=== PATIENT | female | born 1985 | race Caucasian/White ===

== ENCOUNTER 2016-10-10 11:28 | Inpatient (IN) | payer OTHER ==
[2016-10-10] MEDS ORDERED: SODIUM CHLORIDE 1,000 ML IV STA (12:21)
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
[2016-10-10] MEDS ORDERED: ACETAMINOPHEN 325 MG TABLET (FP) PO ONE (12:40)
[2016-10-10] MEDS ORDERED: CLINDAMYCIN 600MG PREMIX IVPB 50 ML IVPB ONE ×2 (12:41→12:42)
[2016-10-10] MEDS ORDERED: ACETAMINOPHEN 325 MG TABLET (FP) ONE (12:41)
[2016-10-10 13:22] LABS: BASOPHIL 0.7 % (0-2.0); EOSINOPHIL 2.3 % (0-4.5); MCHC 32.3 g/dl (32.0-36.0); MEAN CELL VOLUME 83.8 fl (80-96); MEAN PLT VOLUME 8.1 fl (7.5-11.1); NEUTROPHILS 75.3 % (42.8-82.8); PLATELET COUNT 259 K/MM3 (134-434); RDW 13.4 % (11.6-15.6)
[2016-10-10 13:43] LABS: INR 1.11 (0.82-1.09); PROTHROMBIN TIME (PATIENT) 12.2 SEC (9.98-11.88)
[2016-10-10 13:46] LABS: ACTIVATED PTT 36.1 SECONDS (26.9-34.4)
[2016-10-10 13:49] LABS: ALBUMIN 3.9 g/dl (3.4-5.0); COCKROFT - GAULT 121.7285; CREATININE 0.9 mg/dL (0.55-1.02); GLUCOSE,RANDOM 85 mg/dL (74-106); SGPT/ALT 49 U/L (12-78)
[2016-10-10 14:02] LABS: ALK PHOS 108 U/L (45-117); ANION GAP 7 (8-16); BILIRUBIN,TOTAL 0.5 mg/dL (0.2-1.0); CALCIUM 9.4 mg/dL (8.5-10.1); CO2 27 mmol/L (21-32); TOT PROT 7.8 g/dl (6.4-8.2)
[2016-10-10 14:04] LABS: SGOT/AST 46 U/L (15-37)
--- NOTE | 2016-10-10 14:25 | CONSULT ---
- Consultation REQUESTING PROVIDER: Mg Lira (General Surgery) CONSULT REQUEST: We have been asked to surgically evaluate this patient for left breast abscess. HPI: Called to evaluate 31 yo female with acute onset left breast abscess. No PMHx. Presents to [facility] ED with c/o left breast abscess and pain. Informs that she got her nipples pierced 7 months ago. Patient's right breast is unremarkable and still wearing the piercing. She took out the left piercing a few days ago. She first noticed a "bump" September 21. She was /seen/evaluated/ treated by her PCP with Bactrim on 10/07/16. Currently, she is on Cleocin IVPB. she denies any fever, chills, drainage from her nipple. Denies cough, CP or SOB. PMHx: Denies. PSHx: Denies. HOME MEDS: Bactrim 1 tab PO daily Allergies: NKDA ROS Unremarkable except for whats contained in HPI PE: GENERAL: Awake, alert, and fully oriented, nad LUNGS: CTA b/l anteriorly HEART: RRR PSYCH: Cooperative. Good eye contact. Appropriate mood and affect. SKIN: Left breast --> erythema from 9 o'clock position extending medially 6cm. 3 x 3 cm blistering from 9 o'clock moving laterally. Abscess/induration extends underneath nipple-areola complex. Indurated. VERY painful to palpation. No purulent drainage. Vital Signs Temperature 98.2 F 10/10/16 11:34 Pulse Rate 76 10/10/16 11:34 Respiratory Rate 18 10/10/16 11:34 Blood Pressure 113/60 10/10/16 11:34 O2 Sat by Pulse Oximetry (%) 98 10/10/16 11:34 Lab Results WBC 9.0 K/mm3 (4.0-10.0) 10/10/16 12:25 RBC 4.92 M/mm3 (3.60-5.2) D 10/10/16 12:25 Hgb 13.3 GM/dL (10.7-15.3) D 10/10/16 12:25 Hct 41.2 % (32.4-45.2) D 10/10/16 12:25 MCV 83.8 fl (80-96) 10/10/16 12:25 MCHC 32.3 g/dl (32.0-36.0) 10/10/16 12:25 RDW 13.4 % (11.6-15.6) 10/10/16 12:25 Plt Count 259 K/MM3 (134-434) D 10/10/16 12:25 Sodium 138 mmol/L (136-145) 10/10/16 12:25 Potassium 5.2 mmol/L (3.5-5.1) H D 10/10/16 12:25 Chloride 104 mmol/L (98-107) 10/10/16 12:25 Carbon Dioxide 27 mmol/L (21-32) 10/10/16 12:25 Anion Gap 7 (8-16) L 10/10/16 12:25 BUN 10 mg/dL (7-18) D 10/10/16 12:25 Creatinine 0.9 mg/dL (0.55-1.02) D 10/10/16 12:25 Random Glucose 85 mg/dL (74-106) 10/10/16 12:25 Calcium 9.4 mg/dL (8.5-10.1) 10/10/16 12:25 Problem List - Problems (1) Breast abscess Assessment/Plan: NPO after midnight except PO meds IVF GI PPX DVT ppx --> aggressive mobilization Pre-op for Left breast I&D 10/11 Cont IV ABX Above plan discussed with Dr. Lira and agrees Code(s): N61.1 - ABSCESS OF THE BREAST AND NIPPLE Visit type - Case Type Case Type: ED Admission - Emergency Emergency Visit: Yes Care time: The patient presented to the Emergency Department on the above date and was hospitalized for further evaluation of their emergent condition. - New patient This patient is new to me today: Yes Date on this admission: 10/10/16
[2016-10-10] MEDS ORDERED: ACETAMINOPHEN 325 MG TABLET (FP) PO PRN (17:41)
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
[2016-10-10] MEDS: PIPERACILLIN/TAZOB 3.375 GM 50 ML IVPB SCH (21:14)
[2016-10-10 23:23] VITALS: BMI 31.9
[2016-10-11] MEDS: PIPERACILLIN/TAZOB 3.375 GM 50 ML IVPB SCH ×3 (02:24→18:12)
[2016-10-11] MEDS: CLINDAMYCIN 300 MG PREMIX IVPB 50 ML IVPB SCH ×3 (02:24→18:11)
[2016-10-11 08:12] LABS: BASOPHIL 0.5 % (0-2.0); MCH 27.7 pg (25.7-33.7); MCHC 33.4 g/dl (32.0-36.0); MEAN CELL VOLUME 82.9 fl (80-96); MEAN PLT VOLUME 8.1 fl (7.5-11.1); NEUTROPHILS 64.7 % (42.8-82.8); PLATELET COUNT 230 K/MM3 (134-434); RDW 12.9 % (11.6-15.6); WHITE BLOOD COUNT 8.1 K/mm3 (4.0-10.0)
[2016-10-11 08:16] LABS: ALBUMIN 3.1 g/dl (3.4-5.0); ANION GAP 6 (8-16); BILIRUBIN,TOTAL 0.5 mg/dL (0.2-1.0); CALCIUM 8.7 mg/dL (8.5-10.1); CO2 27 mmol/L (21-32); COCKROFT - GAULT 136.9435; CREATININE 0.8 mg/dL (0.55-1.02); GLUCOSE,RANDOM 90 mg/dL (74-106); SGOT/AST 19 U/L (15-37); SGPT/ALT 41 U/L (12-78)
[2016-10-11 08:19] LABS: ALK PHOS 88 U/L (45-117); TOT PROT 6.1 g/dl (6.4-8.2)
[2016-10-11] MEDS ORDERED: PT OWN MED DRAWER 7, Y5N ONE (08:36)
[2016-10-11] MEDS ORDERED: PNEUMOC 13-VAL CONJ-DIP CRM/PF 0.5 ML DISP.SYRIN IM ONE (09:00)
[2016-10-11] MEDS ORDERED: ONDANSETRON 4 MG/2 ML VIAL IVPUSH PRN ×2 (13:44→14:31)
--- NOTE | 2016-10-11 13:47 | PN ---
Progress Note, Physician History of Present Illness: stable no issues for surgery today - Current Medication List Current Medications: Active Medications Acetaminophen (Tylenol -) 650 mg PO Q6H PRN PRN Reason: FEVER OR PAIN Last Admin: 10/10/16 21:31 Dose: 650 mg Fentanyl (Sublimaze Injection -) 50 mcg IVPUSH [id number] PRN PRN Reason: PAIN Stop: 10/14/16 13:45 Piperacillin Sod/Tazobactam Sod (Zosyn 3.375gm Ivpb (Pre-Docked)) 50 mls @ 100 mls/hr IVPB Q8H-IV DEBBIE PRN Reason: Protocol Last Admin: 10/11/16 09:02 Dose: 100 mls/hr Clindamycin Phosphate (Cleocin 300 Mg Premix Ivpb) 50 mls @ 100 mls/hr IVPB Q8H -IV DEBBIE Last Admin: 10/11/16 09:02 Dose: 100 mls/hr Ondansetron HCl (Zofran Injection) 4 mg IVPUSH Q6H PRN PRN Reason: NAUSEA AND/OR VOMITING Stop: 10/11/16 19:45 - Objective Vital Signs: Vital Signs Temperature 98.2 F 10/11/16 10:00 Pulse Rate 64 10/11/16 10:00 Respiratory Rate 18 10/11/16 10:00 Blood Pressure 110/60 10/11/16 10:00 O2 Sat by Pulse Oximetry (%) 98 10/11/16 09:00 Constitutional: Yes: No Distress, Calm Cardiovascular: Yes: Regular Rate and Rhythm Respiratory: Yes: Regular, CTA Bilaterally Gastrointestinal: Yes: Normal Bowel Sounds, Soft Breast(s): Yes: Left (pain swelling and erythema) Musculoskeletal: Yes: WNL Extremities: Yes: WNL Integumentary: Yes: Erythema Neurological: Yes: Alert, Oriented Psychiatric: Yes: Alert, Oriented Labs: CBC, BMP 10/11/16 06:30 10/11/16 06:30 INR, PTT INR 1.11 (0.82-1.09) 10/10/16 12:25 Assessment/Plan - Problems (1) Breast abscess Code(s): N61.1 - ABSCESS OF THE BREAST AND NIPPLE plan for surgery today continue abx
[2016-10-11] MEDS ORDERED: LIDOCAINE HCL 1%, 10 MG/ML (20ML VIAL) IJ ONE ×2 (13:48)
[2016-10-11] MEDS ORDERED: BUPIVACAINE HCL/PF 0.5% (5MG/ML) 10 ML VIAL IJ ONE ×2 (13:48)
--- NOTE | 2016-10-11 14:08 | OP ---
Operative Note - Note: Operative Date: 10/11/16 Pre-Operative Diagnosis: Left breast abscess Operation: incision and drainage of left breast abscess Findings: Large abscess, at least 8cm in longest dimension Post-Operative Diagnosis: Same as Pre-op Surgeon: Mg Lira Anesthesia: Local, MAC Estimated Blood Loss (mls): 5 Operative Report Dictated: Yes
[2016-10-11] MEDS ORDERED: OXYCODONE/APAP 5/325MG COMBO TABLET PO PRN (14:09)
--- NOTE | 2016-10-11 14:13 | CONSULT ---
Consult - text type - Consultation Consultation Note: I&D performed. from surgical standpoint patient can be discharged. can f/u with me as outpt [phone]. i will see her next monday. wound care - dry gauze over wound. change at least twice a day or more often if saturated. can use bra or paper tape to hold gauze in place. please send her home with some percocet just in case? 10?
[2016-10-11] MEDS ORDERED: ACETAMINOPHEN 325 MG TABLET (FP) PO PRN (14:31)
--- NOTE | 2016-10-11 18:13 | PN ---
Progress Note, Physician - Current Medication List Current Medications: Active Medications Acetaminophen (Tylenol -) 325 mg PO Q4H PRN PRN Reason: PAIN LEVEL 6-10 Stop: 10/14/16 14:10 Acetaminophen (Tylenol -) 650 mg PO Q6H PRN PRN Reason: FEVER OR PAIN Fentanyl (Sublimaze Injection -) 50 mcg IVPUSH [id number] PRN PRN Reason: PAIN Stop: 10/14/16 13:45 Clindamycin Phosphate (Cleocin 300 Mg Premix Ivpb) 50 mls @ 100 mls/hr IVPB Q8H -IV DEBBIE Piperacillin Sod/Tazobactam Sod (Zosyn 3.375gm Ivpb (Pre-Docked)) 50 mls @ 100 mls/hr IVPB Q8H-IV DEBBIE PRN Reason: Protocol Ondansetron HCl (Zofran Injection) 4 mg IVPUSH Q6H PRN PRN Reason: NAUSEA AND/OR VOMITING Stop: 10/11/16 19:45 Oxycodone HCl (Roxicodone -) 5 mg PO Q4H PRN PRN Reason: PAIN LEVEL 6-10 - Objective Vital Signs: Vital Signs Temperature 98.3 F 10/11/16 16:45 Pulse Rate 59 L 10/11/16 16:45 Respiratory Rate 20 10/11/16 16:45 Blood Pressure 113/64 10/11/16 16:45 O2 Sat by Pulse Oximetry (%) 98 10/11/16 15:35 Constitutional: Yes: No Distress HENT: Yes: Atraumatic Neck: Yes: Supple Cardiovascular: Yes: Regular Rate and Rhythm Respiratory: Yes: CTA Bilaterally Gastrointestinal: Yes: Normal Bowel Sounds Breast(s): Yes: Left (s/p I and D, dressing in place) Extremities: Yes: WNL Labs: CBC, BMP 10/11/16 06:30 10/11/16 06:30 INR, PTT INR 1.11 (0.82-1.09) 10/10/16 12:25 Problem List - Problems (1) Breast abscess Assessment/Plan: iv abx surgery consult s/p I and D Code(s): N61.1 - ABSCESS OF THE BREAST AND NIPPLE
[2016-10-12] MEDS: PIPERACILLIN/TAZOB 3.375 GM 50 ML IVPB SCH ×3 (01:43→17:39)
[2016-10-12] MEDS: CLINDAMYCIN 300 MG PREMIX IVPB 50 ML IVPB SCH ×3 (01:45→17:37)
[2016-10-12] MEDS: oxyCODONE HCL 5 MG TABLET PO PRN ×3 (06:54→21:56)
[2016-10-12] MEDS: ACETAMINOPHEN 325 MG TABLET (FP) PO PRN ×2 (06:55→12:44)
--- NOTE | 2016-10-12 07:16 | OP ---
DATE OF OPERATION: 10/11/2016 PROCEDURE: Incision and drainage of left breast abscess. PREOPERATIVE DIAGNOSIS: Left breast abscess. POSTOPERATIVE DIAGNOSIS: Left breast abscess. SURGEON: Mg Lira MD ANESTHESIA: Local with MAC sedation. OPERATIVE NOTE IN DETAIL: Patient was brought to the operating room after confirming name, date of , medical record number. She was placed in supine position, SCDs for DVT prophylaxis. She was then prepped and draped in the usual sterile fashion. She was then sedated, and then, we injected approximately 10 mL of 1% lidocaine/ 0.5% Marcaine, and around the fluctuant area, which was medial to the left nipple. At this point, at the most fluctuant portion of the abscess, which was mostly over the areola, an incision transversely was made, and a large gush of thick, yellowish, whitish, purulent material was expressed. I then converted this to a cruciate type incision as it was evident from all the pus coming out that this was a large abscess cavity. I then placed my finger inside the wound, and it extended deeply and laterally and it was approximately 8 cm in depth, and at this point, I unroofed a small portion of the abscess to facilitate drainage. I then copiously irrigated the abscess cavity, and once I was satisfied that there was no more pus, dry dressing was placed and then, a paper tape was used to secure the dressing. MG LIRA M.D. [id number]
[2016-10-12] MEDS ORDERED: PT OWN MED DRAWER 7, Y5N ONE (08:32)
--- NOTE | 2016-10-12 10:42 | PN ---
Progress Note, Physician History of Present Illness: stable feels much better post op now - Current Medication List Current Medications: Active Medications Acetaminophen (Tylenol -) 325 mg PO Q4H PRN PRN Reason: PAIN LEVEL 6-10 Stop: 10/14/16 14:10 Last Admin: 10/12/16 06:55 Dose: 325 mg Acetaminophen (Tylenol -) 650 mg PO Q6H PRN PRN Reason: FEVER OR PAIN Fentanyl (Sublimaze Injection -) 50 mcg IVPUSH [id number] PRN PRN Reason: PAIN Stop: 10/14/16 13:45 Clindamycin Phosphate (Cleocin 300 Mg Premix Ivpb) 50 mls @ 100 mls/hr IVPB Q8H -IV DEBBIE Last Admin: 10/12/16 09:31 Dose: 100 mls/hr Piperacillin Sod/Tazobactam Sod (Zosyn 3.375gm Ivpb (Pre-Docked)) 50 mls @ 100 mls/hr IVPB Q8H-IV DEBBIE PRN Reason: Protocol Last Admin: 10/12/16 09:31 Dose: 100 mls/hr Oxycodone HCl (Roxicodone -) 5 mg PO Q4H PRN PRN Reason: PAIN LEVEL 6-10 Last Admin: 10/12/16 06:54 Dose: 5 mg - Objective Vital Signs: Vital Signs Temperature 98 F 10/12/16 08:05 Pulse Rate 84 10/12/16 08:05 Respiratory Rate 20 10/12/16 08:05 Blood Pressure 132/72 10/12/16 08:05 O2 Sat by Pulse Oximetry (%) 96 10/12/16 08:00 Constitutional: Yes: No Distress, Calm Cardiovascular: Yes: Regular Rate and Rhythm Respiratory: Yes: Regular, CTA Bilaterally Gastrointestinal: Yes: Normal Bowel Sounds, Soft Musculoskeletal: Yes: WNL Extremities: Yes: WNL Integumentary: Yes: Erythema (resolving) Wound/Incision: Yes: Dressing Dry and Intact Neurological: Yes: Alert, Oriented Psychiatric: Yes: Alert, Oriented Labs: CBC, BMP 10/11/16 06:30 10/11/16 06:30 INR, PTT INR 1.11 (0.82-1.09) 10/10/16 12:25 Assessment/Plan - Problems (1) Breast abscess Code(s): N61.1 - ABSCESS OF THE BREAST AND NIPPLE plan continue abx await for cx reports wound care
--- NOTE | 2016-10-12 10:47 | PN ---
Progress Note (short form) - Note Progress Note: Post op day#1.S/P Left breast I&D of abscess under mac uneventful.Patient stable.No any anesthesia related problem.Patient dc from the anesthesia care.
--- NOTE | 2016-10-12 16:40 | PN ---
Progress Note, Physician History of Present Illness: doing well - Current Medication List Current Medications: Active Medications Acetaminophen (Tylenol -) 325 mg PO Q4H PRN PRN Reason: PAIN LEVEL 6-10 Stop: 10/14/16 14:10 Last Admin: 10/12/16 12:44 Dose: 325 mg Acetaminophen (Tylenol -) 650 mg PO Q6H PRN PRN Reason: FEVER OR PAIN Fentanyl (Sublimaze Injection -) 50 mcg IVPUSH [id number] PRN PRN Reason: PAIN Stop: 10/14/16 13:45 Clindamycin Phosphate (Cleocin 300 Mg Premix Ivpb) 50 mls @ 100 mls/hr IVPB Q8H -IV DEBBIE Last Admin: 10/12/16 09:31 Dose: 100 mls/hr Piperacillin Sod/Tazobactam Sod (Zosyn 3.375gm Ivpb (Pre-Docked)) 50 mls @ 100 mls/hr IVPB Q8H-IV DEBBIE PRN Reason: Protocol Last Admin: 10/12/16 09:31 Dose: 100 mls/hr Oxycodone HCl (Roxicodone -) 5 mg PO Q4H PRN PRN Reason: PAIN LEVEL 6-10 Last Admin: 10/12/16 12:44 Dose: 5 mg - Objective Vital Signs: Vital Signs Temperature 98.2 F 10/12/16 15:34 Pulse Rate 60 10/12/16 15:34 Respiratory Rate 18 10/12/16 15:34 Blood Pressure 107/65 10/12/16 15:34 O2 Sat by Pulse Oximetry (%) 96 10/12/16 08:00 Constitutional: Yes: No Distress HENT: Yes: Atraumatic Neck: Yes: Supple Cardiovascular: Yes: Regular Rate and Rhythm Respiratory: Yes: CTA Bilaterally Gastrointestinal: Yes: Normal Bowel Sounds Breast(s): Yes: Left (dresing in place) Neurological: Yes: Alert, Oriented Labs: CBC, BMP 10/11/16 06:30 10/11/16 06:30 INR, PTT INR 1.11 (0.82-1.09) 10/10/16 12:25 Problem List - Problems (1) Breast abscess Assessment/Plan: iv abx surgery consult s/p I and D awaiting cx report and sensitivity Code(s): N61.1 - ABSCESS OF THE BREAST AND NIPPLE
[2016-10-13] MEDS ORDERED: PT OWN MED DRAWER 7, Y5N ONE ×3 (01:06→17:36)
[2016-10-13] MEDS: CLINDAMYCIN 300 MG PREMIX IVPB 50 ML IVPB SCH ×3 (03:07→17:42)
[2016-10-13] MEDS: PIPERACILLIN/TAZOB 3.375 GM 50 ML IVPB SCH ×3 (03:08→19:00)
[2016-10-13] MEDS: oxyCODONE HCL 5 MG TABLET PO PRN ×2 (09:46→22:35)
[2016-10-13] MEDS: ACETAMINOPHEN 325 MG TABLET (FP) PO PRN ×2 (09:47→22:38)
--- NOTE | 2016-10-13 11:52 | PATH ---
Surgical Pathology Report Patient Name: MRAGO MIR Med. Rec. #: [id number] /Age/Gender: 1985 (Age: 31) / F Account: [id number] Location: [facility] MED/SURG Taken: 10/11/2016 Received: 10/12/2016 Reported: 10/13/2016 Physicians: Mg Lira MD Specimen(s) Received LEFT BREAST TISSUE Clinical History Left breast abscess Final Diagnosis SKIN, LEFT BREAST, DEBRIDEMENT: SKIN WITH DEEP DERMAL GRANULATION TISSUE WITH ASSOCIATED INFLAMMATION CONSISTENT WITH PORTION OF ABSCESS WALL. NO CARCINOMA IDENTIFIED. Electronically Signed Fermin Almanza M.D. Gross Description Received in formalin labeled "left breast tissue," is a 0.8 x 0.6 x 0.3 cm qiu-brown, irregular, unoriented portion of skin with underlying soft tissue. The specimen is bisected and entirely submitted in one cassette. /10/12/2016 saudi10/12/2016
--- NOTE | 2016-10-13 13:04 | PN ---
Progress Note, Physician History of Present Illness: patient s/p post op abscess drainage still draining tenderness and induration still present erythema still present - Current Medication List Current Medications: Active Medications Acetaminophen (Tylenol -) 325 mg PO Q4H PRN PRN Reason: PAIN LEVEL 6-10 Stop: 10/14/16 14:10 Last Admin: 10/13/16 09:47 Dose: 325 mg Acetaminophen (Tylenol -) 650 mg PO Q6H PRN PRN Reason: FEVER OR PAIN Fentanyl (Sublimaze Injection -) 50 mcg IVPUSH [id number] PRN PRN Reason: PAIN Stop: 10/14/16 13:45 Clindamycin Phosphate (Cleocin 300 Mg Premix Ivpb) 50 mls @ 100 mls/hr IVPB Q8H -IV DEBBIE Last Admin: 10/13/16 09:44 Dose: 100 mls/hr Piperacillin Sod/Tazobactam Sod (Zosyn 3.375gm Ivpb (Pre-Docked)) 50 mls @ 100 mls/hr IVPB Q8H-IV DEBBIE PRN Reason: Protocol Last Admin: 10/13/16 10:41 Dose: 100 mls/hr Oxycodone HCl (Roxicodone -) 5 mg PO Q4H PRN PRN Reason: PAIN LEVEL 6-10 Last Admin: 10/13/16 09:46 Dose: 5 mg - Objective Vital Signs: Vital Signs Temperature 97.3 F L 10/13/16 09:27 Pulse Rate 55 L 10/13/16 09:27 Respiratory Rate 17 10/13/16 09:27 Blood Pressure 112/67 10/13/16 09:27 O2 Sat by Pulse Oximetry (%) 99 10/13/16 09:00 Constitutional: Yes: No Distress, Calm Cardiovascular: Yes: Regular Rate and Rhythm Respiratory: Yes: Regular, CTA Bilaterally Gastrointestinal: Yes: Normal Bowel Sounds, Soft Musculoskeletal: Yes: WNL Extremities: Yes: WNL Wound/Incision: Yes: Draining, Reddened Neurological: Yes: Alert, Oriented Psychiatric: Yes: Alert Labs: CBC, BMP 10/11/16 06:30 10/11/16 06:30 INR, PTT INR 1.11 (0.82-1.09) 10/10/16 12:25 Assessment/Plan - Problems (1) Breast abscess Code(s): N61.1 - ABSCESS OF THE BREAST AND NIPPLE plan continue abx await for cx reports wound care wound still erythematous
--- NOTE | 2016-10-13 17:09 | PN ---
Progress Note, Physician History of Present Illness: doing well - Current Medication List Current Medications: Active Medications Acetaminophen (Tylenol -) 325 mg PO Q4H PRN PRN Reason: PAIN LEVEL 6-10 Stop: 10/14/16 14:10 Last Admin: 10/13/16 09:47 Dose: 325 mg Acetaminophen (Tylenol -) 650 mg PO Q6H PRN PRN Reason: FEVER OR PAIN Fentanyl (Sublimaze Injection -) 50 mcg IVPUSH [id number] PRN PRN Reason: PAIN Stop: 10/14/16 13:45 Clindamycin Phosphate (Cleocin 300 Mg Premix Ivpb) 50 mls @ 100 mls/hr IVPB Q8H -IV DEBBIE Last Admin: 10/13/16 09:44 Dose: 100 mls/hr Piperacillin Sod/Tazobactam Sod (Zosyn 3.375gm Ivpb (Pre-Docked)) 50 mls @ 100 mls/hr IVPB Q8H-IV DEBBIE PRN Reason: Protocol Last Admin: 10/13/16 10:41 Dose: 100 mls/hr Oxycodone HCl (Roxicodone -) 5 mg PO Q4H PRN PRN Reason: PAIN LEVEL 6-10 Last Admin: 10/13/16 09:46 Dose: 5 mg - Objective Vital Signs: Vital Signs Temperature 98.3 F 10/13/16 17:03 Pulse Rate 60 10/13/16 17:03 Respiratory Rate 20 10/13/16 17:03 Blood Pressure 121/61 10/13/16 17:03 O2 Sat by Pulse Oximetry (%) 99 10/13/16 09:00 Constitutional: Yes: No Distress HENT: Yes: Atraumatic Neck: Yes: Supple Cardiovascular: Yes: Regular Rate and Rhythm Respiratory: Yes: CTA Bilaterally Gastrointestinal: Yes: Normal Bowel Sounds Breast(s): Yes: Left (healing well) Neurological: Yes: Alert, Oriented Labs: CBC, BMP 10/11/16 06:30 10/11/16 06:30 INR, PTT INR 1.11 (0.82-1.09) 10/10/16 12:25 Problem List - Problems (1) Breast abscess Assessment/Plan: iv abx surgery consult s/p I and D awaiting cx report and sensitivity Code(s): N61.1 - ABSCESS OF THE BREAST AND NIPPLE
[2016-10-14] MEDS: CLINDAMYCIN 300 MG PREMIX IVPB 50 ML IVPB SCH (02:00)
[2016-10-14] MEDS: PIPERACILLIN/TAZOB 3.375 GM 50 ML IVPB SCH ×3 (02:33→17:44)
[2016-10-14] MEDS ORDERED: PT OWN MED DRAWER 7, Y5N ONE (09:23)
--- NOTE | 2016-10-14 09:45 | PN ---
Progress Note, Physician History of Present Illness: patient doing well still with erythema and swelling around the wound no complaints - Current Medication List Current Medications: Active Medications Acetaminophen (Tylenol -) 325 mg PO Q4H PRN PRN Reason: PAIN LEVEL 6-10 Stop: 10/14/16 14:10 Last Admin: 10/13/16 22:38 Dose: 325 mg Acetaminophen (Tylenol -) 650 mg PO Q6H PRN PRN Reason: FEVER OR PAIN Clindamycin HCl (Cleocin -) 300 mg PO Q6HPO DEBBIE Fentanyl (Sublimaze Injection -) 50 mcg IVPUSH [id number] PRN PRN Reason: PAIN Stop: 10/14/16 13:45 Piperacillin Sod/Tazobactam Sod (Zosyn 3.375gm Ivpb (Pre-Docked)) 50 mls @ 100 mls/hr IVPB Q8H-IV DEBBIE PRN Reason: Protocol Last Admin: 10/14/16 09:27 Dose: 100 mls/hr Oxycodone HCl (Roxicodone -) 5 mg PO Q4H PRN PRN Reason: PAIN LEVEL 6-10 Last Admin: 10/13/16 22:35 Dose: 5 mg - Objective Vital Signs: Vital Signs Temperature 98.3 F 10/14/16 09:33 Pulse Rate 65 10/14/16 09:33 Respiratory Rate 16 10/14/16 09:33 Blood Pressure 112/60 10/14/16 09:33 O2 Sat by Pulse Oximetry (%) 99 10/13/16 21:00 Constitutional: Yes: No Distress, Calm Cardiovascular: Yes: Regular Rate and Rhythm Respiratory: Yes: Regular, CTA Bilaterally Gastrointestinal: Yes: Normal Bowel Sounds, Soft Musculoskeletal: Yes: WNL Extremities: Yes: WNL Integumentary: Yes: Erythema Wound/Incision: Yes: Draining, Other Neurological: Yes: Alert, Oriented Psychiatric: Yes: Alert, Oriented Labs: CBC, BMP 10/11/16 06:30 10/11/16 06:30 INR, PTT INR 1.11 (0.82-1.09) 10/10/16 12:25 Assessment/Plan - Problems (1) Breast abscess Code(s): N61.1 - ABSCESS OF THE BREAST AND NIPPLE plan continue abx switched clinda to oral still waiting for identification of second organism once we have it we will switch to oral
[2016-10-14] MEDS: CLINDAMYCIN HCL 150 MG CAPSULE (FP) PO SCH ×2 (12:36→17:43)
--- NOTE | 2016-10-14 14:26 | PN ---
Progress Note, Physician Chief Complaint: patient wants to go home History of Present Illness: no pain. - Current Medication List Current Medications: Active Medications Acetaminophen (Tylenol -) 650 mg PO Q6H PRN PRN Reason: FEVER OR PAIN Clindamycin HCl (Cleocin -) 300 mg PO Q6HPO DEBBIE Last Admin: 10/14/16 12:36 Dose: 300 mg Piperacillin Sod/Tazobactam Sod (Zosyn 3.375gm Ivpb (Pre-Docked)) 50 mls @ 100 mls/hr IVPB Q8H-IV DEBBIE PRN Reason: Protocol Last Admin: 10/14/16 09:27 Dose: 100 mls/hr - Objective Vital Signs: Vital Signs Temperature 98.3 F 10/14/16 09:33 Pulse Rate 65 10/14/16 09:33 Respiratory Rate 16 10/14/16 09:33 Blood Pressure 112/60 10/14/16 09:33 O2 Sat by Pulse Oximetry (%) 95 10/14/16 09:00 Breast(s): Yes: Other (wound with some induration, draining serosang fluid. nontender.) Labs: CBC, BMP 10/11/16 06:30 10/11/16 06:30 INR, PTT INR 1.11 (0.82-1.09) 10/10/16 12:25 Problem List - Problems (1) Breast abscess Assessment/Plan: clear for discharge home from surgical standpoint abx as per ID Code(s): N61.1 - ABSCESS OF THE BREAST AND NIPPLE
--- NOTE | 2016-10-14 18:33 | PN ---
Progress Note, Physician History of Present Illness: wants to go home - Current Medication List Current Medications: Active Medications Acetaminophen (Tylenol -) 650 mg PO Q6H PRN PRN Reason: FEVER OR PAIN Last Admin: 10/14/16 14:42 Dose: 650 mg Clindamycin HCl (Cleocin -) 300 mg PO Q6HPO DEBBIE Last Admin: 10/14/16 17:43 Dose: 300 mg Piperacillin Sod/Tazobactam Sod (Zosyn 3.375gm Ivpb (Pre-Docked)) 50 mls @ 100 mls/hr IVPB Q8H-IV DEBBIE PRN Reason: Protocol Last Admin: 10/14/16 17:44 Dose: 100 mls/hr - Objective Vital Signs: Vital Signs Temperature 97.2 F L 10/14/16 17:07 Pulse Rate 71 10/14/16 17:07 Respiratory Rate 20 10/14/16 17:07 Blood Pressure 120/86 10/14/16 17:07 O2 Sat by Pulse Oximetry (%) 95 10/14/16 09:00 Constitutional: Yes: No Distress HENT: Yes: Atraumatic Neck: Yes: Supple Cardiovascular: Yes: Regular Rate and Rhythm Respiratory: Yes: CTA Bilaterally Gastrointestinal: Yes: Normal Bowel Sounds Breast(s): Yes: Left (healing well) Extremities: Yes: WNL Neurological: Yes: Alert, Oriented Labs: CBC, BMP 10/11/16 06:30 10/11/16 06:30 INR, PTT INR 1.11 (0.82-1.09) 10/10/16 12:25 Problem List - Problems (1) Breast abscess Assessment/Plan: iv abx surgery consult s/p I and D awaiting cx report and sensitivity Code(s): N61.1 - ABSCESS OF THE BREAST AND NIPPLE Assessment/Plan Laboratory Tests 10/10/16 10/10/16 10/10/16 12:25 12:25 12:25 WBC 9.0 RBC 4.92 D Hgb 13.3 D Hct 41.2 D MCV 83.8 MCHC 32.3 RDW 13.4 Plt Count 259 D MPV 8.1 Neutrophils % 75.3 Lymphocytes % 16.5 Monocytes % 5.2 Eosinophils % 2.3 D Basophils % 0.7 D INR 1.11 PTT (Actin FS) 36.1 H D Sodium Potassium Chloride Carbon Dioxide Anion Gap BUN Creatinine Creat Clearance w eGFR Random Glucose Calcium Total Bilirubin AST ALT Alkaline Phosphatase Total Protein Albumin Serum , Qual Negative 10/10/16 12:25 WBC RBC Hgb Hct MCV MCHC RDW Plt Count MPV Neutrophils % Lymphocytes % Monocytes % Eosinophils % Basophils % INR PTT (Actin FS) Sodium 138 Potassium 5.2 H D Chloride 104 Carbon Dioxide 27 Anion Gap 7 L BUN 10 D Creatinine 0.9 D Creat Clearance w eGFR > 60 Random Glucose 85 Calcium 9.4 Total Bilirubin 0.5 AST 46 H ALT 49 Alkaline Phosphatase 108 Total Protein 7.8 Albumin 3.9 Serum , Qual
[2016-10-15] MEDS: CLINDAMYCIN HCL 150 MG CAPSULE (FP) PO SCH ×4 (00:04→17:41)
[2016-10-15] MEDS: PIPERACILLIN/TAZOB 3.375 GM 50 ML IVPB SCH ×3 (01:28→17:41)
[2016-10-15 07:18] LABS: BASOPHIL 0.3 % (0-2.0); EOSINOPHIL 2.4 % (0-4.5); MCH 27.3 pg (25.7-33.7); MCHC 32.7 g/dl (32.0-36.0); MEAN CELL VOLUME 83.4 fl (80-96); MEAN PLT VOLUME 7.8 fl (7.5-11.1); NEUTROPHILS 66.6 % (42.8-82.8); PLATELET COUNT 278 K/MM3 (134-434); RDW 12.9 % (11.6-15.6); WHITE BLOOD COUNT 9.7 K/mm3 (4.0-10.0)
[2016-10-15 07:41] LABS: ALBUMIN 3.5 g/dl (3.4-5.0); ANION GAP 8 (8-16); CALCIUM 9.2 mg/dL (8.5-10.1); CO2 27 mmol/L (21-32); GLUCOSE,RANDOM 85 mg/dL (74-106); SGOT/AST 17 U/L (15-37); SGPT/ALT 40 U/L (12-78)
[2016-10-15 07:44] LABS: ALK PHOS 84 U/L (45-117); BILIRUBIN,TOTAL 0.3 mg/dL (0.2-1.0); COCKROFT - GAULT 121.7285; CREATININE 0.9 mg/dL (0.55-1.02); TOT PROT 6.9 g/dl (6.4-8.2)
--- NOTE | 2016-10-15 10:17 | PN ---
Progress Note, Physician History of Present Illness: doing well wound healing well surgery has evaluated the patient - Current Medication List Current Medications: Active Medications Acetaminophen (Tylenol -) 650 mg PO Q6H PRN PRN Reason: FEVER OR PAIN Last Admin: 10/14/16 14:42 Dose: 650 mg Clindamycin HCl (Cleocin -) 300 mg PO Q6HPO DEBBIE Last Admin: 10/15/16 05:59 Dose: 300 mg Piperacillin Sod/Tazobactam Sod (Zosyn 3.375gm Ivpb (Pre-Docked)) 50 mls @ 100 mls/hr IVPB Q8H-IV DEBBIE PRN Reason: Protocol Last Admin: 10/15/16 01:28 Dose: 100 mls/hr - Objective Vital Signs: Vital Signs Temperature 97.3 F L 10/15/16 06:00 Pulse Rate 60 10/15/16 06:00 Respiratory Rate 20 10/15/16 06:00 Blood Pressure 99/69 10/15/16 06:00 O2 Sat by Pulse Oximetry (%) 96 10/14/16 21:00 Constitutional: Yes: No Distress, Calm Cardiovascular: Yes: Regular Rate and Rhythm Respiratory: Yes: Regular, CTA Bilaterally Gastrointestinal: Yes: Normal Bowel Sounds, Soft Musculoskeletal: Yes: WNL Extremities: Yes: WNL Integumentary: Yes: Erythema Wound/Incision: Yes: Dressing Dry and Intact Neurological: Yes: Alert, Oriented Psychiatric: Yes: Alert, Oriented Labs: CBC, BMP 10/15/16 06:00 10/15/16 06:00 INR, PTT INR 1.11 (0.82-1.09) 10/10/16 12:25 Assessment/Plan - Problems (1) Breast abscess Code(s): N61.1 - ABSCESS OF THE BREAST AND NIPPLE plan continue abx switched clinda to oral still waiting for the organism spoke [facility] will have the organism by tomorrow
[2016-10-15 17:25] VITALS: BP 110/62; PULSE 58; TEMP 98.4
--- NOTE | 2016-10-15 18:25 | DS ---
Physical Examination Vital Signs: Vital Signs Temperature 98.4 F 10/15/16 17:24 Pulse Rate 58 L 10/15/16 17:24 Respiratory Rate 20 10/15/16 17:24 Blood Pressure 110/62 10/15/16 17:24 O2 Sat by Pulse Oximetry (%) 99 10/15/16 09:00 Constitutional: Yes: No Distress HENT: Yes: Atraumatic Neck: Yes: Supple Cardiovascular: Yes: Regular Rate and Rhythm Respiratory: Yes: CTA Bilaterally Gastrointestinal: Yes: Normal Bowel Sounds Breast(s): Yes: Left (healing well) Extremities: Yes: WNL Neurological: Yes: Alert, Oriented Labs: CBC, BMP 10/15/16 06:00 10/15/16 06:00 Discharge Summary Reason For Visit: LT BREAST ABSCESS Current Active Problems Breast abscess (Acute) - Instructions Referrals: Doreen Elliott MD [Primary Care Provider] - - Home Medications Comprehensive Discharge Medication List: Ambulatory Orders Sulfamethoxazole/Trimethoprim [Bactrim Ds -] 1 tab PO BID 10/10/16 Amoxicillin/Potassium Clav [Augmentin 875-125 Tablet] 1 each PO BID #14 tablet MDD 2 10/15/16 Clindamycin [Cleocin -] 300 mg PO Q6HPO #28 bottle 10/15/16 d/w id pt can be dc on po augmentin and clinda
== END 2016-10-15 19:00 | disposition home or self-care (01) | DRG 363 ==
LOC: JER 11:28 → JERFT 11:28 → JERBED 13:27 → UNDOADMIN 14:24 → JERBED 14:24 → J8W 18:30
PROVIDERS: ADMIT Internal Medicine; ATTEND Internal Medicine
PROC: 0H9U0ZX Drainage of Left Breast, Open Approach, Diagnostic (ICD-10-PCS; principal; 2016-10-11 14:00)
DX: N61.1 Abscess of the breast and nipple (principal)
CPT/HCPCS: 36415; 80053; 84703; 85025; 85610; 85730; 87040; 87070; 87205; 88304-TC; 94760; 99285-25

== ENCOUNTER 2017-06-30 12:50 | Emergency (ER) | payer OTHER ==
[2017-06-30 12:55] VITALS: BP 134/81; PULSE 74; TEMP 99.1; BMI 30.5
[2017-06-30 13:47] LABS: HCG,QUALITATIVE URINE NEGATIVE
[2017-06-30 13:51] LABS: URINE APPEARANCE CLEAR; URINE BILIRUBIN NEGATIVE (NEGATIVE); URINE BLOOD NEGATIVE (NEGATIVE); URINE COLOR YELLOW; URINE GLUCOSE (UA) NEGATIVE (NEGATIVE); URINE KETONE NEGATIVE (NEGATIVE); URINE NITRITE NEGATIVE (NEGATIVE); URINE PROTEIN NEGATIVE (NEGATIVE); URINE UROBILINOGEN NEGATIVE mg/dL (0.2-1.0)
[2017-06-30 13:54] LABS: URINE LEUK ESTERASE 2+ (NEGATIVE)
[2017-06-30 13:55] LABS: EPI CELLS RARE /HPF (FEW)
[2017-06-30 13:56] LABS: URINE MUCUS RARE
--- NOTE | 2017-06-30 14:16 | PDOC ---
History of Present Illness - General Chief Complaint: Urinary Problem Stated Complaint: URINARY RETENTION, SWOLLEN LT EYE Time Seen by Provider: 06/30/17 13:14 - History of Present Illness Initial Comments: 06/30/17 14:11 CHIEF COMPLAINT: urinary discomfort HISTORY OF PRESENT ILLNESS: 31 yo F with no significant PMH [facility] with urinary discomfort x yesterday. Patient reports "I get UTIs like twice a year, and my urine smells bad like there's an infection, and today I started feeling a little of that burning sensation." Patient denies any fever, chills, nausea, vomiting, diarrhea, or back pain. Patient reports last STD test was 6 months ago and negative. PAST MEDICAL HISTORY: Denies past medical history FAMILY HISTORY: Denies SOCIAL HISTORY: Denies tobacco, alcohol, illicit drug use. SURGICAL HISTORY: Denies ALLERGIES: No known drug allergies REVIEW OF SYSTEMS General/Constitutional: Denies fever or chills. HEENT: Denies change in vision. Denies ear pain or discharge. Denies sore throat. Cardiovascular: Denies chest pain or shortness of breath. Respiratory: Denies cough, wheezing. Gastrointestinal: Denies nausea, vomiting, diarrhea. Genitourinary: Burning sensation with urination, foul odor to urine. Musculoskeletal: Denies joint or muscle swelling or pain. Denies neck or back pain. Skin: Denies rash or easy bruising. PHYSICAL EXAM General Appearance: Well-appearing, appropriately dressed. No apparent distress. HEENT: EOMI, PERRLA. No conjunctival pallor. No photophobia, scleral icterus. Respiratory/Chest: Lungs CTAB. Cardiovascular: RRR. S1, S2. Gastrointestinal/Abdominal: Normal bowel sounds. Abdomen soft, non-distended. No tenderness or rebound tenderness. No organomegaly, pulsatile mass, guarding , hernia, hepatomegaly, splenomegaly. Musculoskeletal/Extremities: Normal inspection. FROM of all extremities, normal capillary refill. Pelvis Stable. No CVA tenderness. No tenderness to extremities, pedal edema, swelling, erythema or deformity. Integumentary: Appropriate color, dry, warm. No cyanosis, erythema, jaundice or rash Neurologic: manager technical services II-XII intact. Fully oriented, alert. Appropriate mood/affect. Motor strength 5/5. No appreciable EOM palsy, facial droop or sensory deficit. Past History - Past Medical History Allergies/Adverse Reactions: Allergies Allergy/AdvReac Type Severity Reaction Status Date / Time No Known Allergies Allergy Verified 06/30/17 12:51 Home Medications: Ambulatory Orders Cephalexin Monohydrate [Keflex -] 500 mg PO BID #20 capsule 06/30/17 Asthma: No Cancer: No Cardiac Disorders: No COPD: No Diabetes: No HTN: No Seizures: No Thyroid Disease: No - Suicide/Smoking/Psychosocial Hx Smoking History: Never smoked Have you smoked in the past 12 months: Yes Number of Cigarettes Smoked Daily: 5 Information on smoking cessation initiated: Yes 'Breaking Loose' booklet given: 06/30/17 Hx Alcohol Use: No Drug/Substance Use Hx: No Substance Use Type: None Hx Substance Use Treatment: No *Physical Exam - Vital Signs Last Vital Signs Temp Pulse Resp BP Pulse Ox 99.1 F 74 18 134/81 100 06/30/17 12:53 06/30/17 12:53 06/30/17 12:53 06/30/17 12:53 06/30/17 12:53 ED Treatment Course - ADDITIONAL ORDERS Additional order review: Laboratory Results 06/30/17 13:31 Urine Color Yellow Urine Appearance Clear Urine pH 6.0 Ur Specific Mark 1.017 Urine Protein Negative Urine Glucose (UA) Negative Urine Ketones Negative Urine Blood Negative Urine Nitrite Negative Urine Bilirubin Negative Urine Urobilinogen Negative Ur Leukocyte Esterase 2+ H Urine WBC (Auto) 83 Urine RBC (Auto) 5 Ur Epithelial Cells Rare Urine Mucus Rare Urine HCG, Qual Negative Medical Decision Making - Medical Decision Making 06/30/17 14:16 31 yo F with no significant PMH presents [facility] with urinary discomfort x yesterday. -UA, UCx, Urine preg UA results positive for 83 WBC. Will rx Keflex for UTI. Advised patient to take medication as prescribed and follow up with PCP if symptoms persist. Advised patient of signs and symptoms for return to ED. Patient verbalized understanding and agrees to plan. *DC/Admit/Observation/Transfer Diagnosis at time of Disposition: UTI (urinary tract infection) Qualifiers: Urinary tract infection type: site unspecified Hematuria presence: without hematuria Qualified Code(s): N39.0 - Urinary tract infection, site not specified - Discharge Dispostion Disposition: HOME Condition at time of disposition: Stable Admit: No - Prescriptions Prescriptions: Cephalexin Monohydrate [Keflex -] 500 mg PO BID #20 capsule - Referrals Referrals: Rachana Forbes NP [Primary Care Provider] - - Patient Instructions Printed Discharge Instructions: DI for Urinary Tract Infection (UTI) Additional Instructions: Please take medications as prescribed and complete the entire course of medication. Follow up with your primary care doctor if symptoms persist past 3- 5 days. If you develop any fever, chills, nausea, vomiting, diarrhea, or back pain, please return to the ER. - Post Discharge Activity
== END 2017-06-30 14:27 | disposition home or self-care (01) ==
LOC: JERFT 12:50
DX: N39.0 Urinary tract infection, site not specified (principal)
CPT/HCPCS: 81003; 81015; 84703; 87086; 87186; 99281-25

== ENCOUNTER 2020-01-14 17:24 | Emergency (ER) | payer OTHER ==
[2020-01-14 17:31] VITALS: BP 115/78; PULSE 78; TEMP 98.7; BMI 31.7
--- NOTE | 2020-01-14 17:32 | PDOC ---
Rapid Medical Evaluation Chief Complaint: Pain Time Seen by Provider: 01/14/20 17:28 Medical Evaluation: Allergies Allergy/AdvReac Type Severity Reaction Status Date / Time No Known Allergies Allergy Verified 06/30/17 12:51 01/14/20 17:28 CC: recurrent abscess to left breast, has had mammogram which ruled out cancer, started draining today, no other complaints Exam: vss, left breast exam with noted opened draining area to 8 oclock, surrounding skin intact Plan: wound cx Discharge Disposition - Diagnosis Breast abscess - Referrals - Patient Instructions - Post Discharge Activity
[2020-01-14] MEDS ORDERED: IBUPROFEN 600 MG TABLET (FP) PO ONE ×2 (18:27→18:29)
--- NOTE | 2020-01-14 18:36 | PDOC ---
History of Present Illness - General Chief Complaint: Pain Stated Complaint: ABCESS Time Seen by Provider: 01/14/20 17:28 History Source: Patient Exam Limitations: No Limitations - History of Present Illness Initial Comments: 01/14/20 18:31 34-year-old female history of abscess to left breast 3 years ago at that time reports having a normal mammogram. Also had piercing of bilateral nipples 3 years ago, the left piercing was accidentally struck by her 1-year-old potentially causing the abscess. Presents to the ED complaining of swelling and redness to left breast since early November which resolved after applying cool compresses, needle aspiration and 10-day course of antibiotics given by urgent care. Given pandemic patient did not want to come to the hospital. However p ain and swelling returned 3 weeks ago and this afternoon while taking a shower she felt drainage from her left breast. Denies fever, chills or trauma. Patient is not breast-feeding. ROS: as above PE: GENERAL: well-appearing, NAD HEAD: NCAT EYES: Pupils equal, round and reactive to light, sclera anicteric, conjunctiva clear ENT: pharynx: no erythema, no exudate, uvula midline NECK: supple CHEST: nontender RESP: clear, no w/r/r CARDIO: rrr, no m/g/r ABD: +BS, soft, nontender, non distended BACK: no midline spinal ttp, no CVAT EXTREMITIES: Normal range of motion, no edema NEUROLOGICAL: Normal speech, normal gait SKIN: Swelling, erythema and warmth to left breast approximately 8:00 with minimal drainage from small opening Is this a multiple visit Asthma Patient?: No Past History - Medical History Allergies/Adverse Reactions: Allergies Allergy/AdvReac Type Severity Reaction Status Date / Time No Known Allergies Allergy Verified 01/14/20 17:31 Home Medications: Ambulatory Orders Cephalexin Monohydrate [Keflex -] 500 mg PO BID #20 capsule 06/30/17 Cephalexin [Keflex] 500 mg PO QID 10 Days #40 capsule 01/14/20 Asthma: No Cancer: No Cardiac Disorders: No COPD: No Diabetes: No HTN: No Seizures: No Thyroid Disease: No - Psycho-Social/Smoking History Smoking History: Never smoked Have you smoked in the past 12 months: Yes Number of Cigarettes Smoked Daily: 5 Information on smoking cessation initiated: No 'Breaking Loose' booklet given: 06/30/17 - Substance Abuse Hx (Audit-C & DAST Scrn) How often the patient has a drink containing alcohol: Never Score: In Men: 4 or > Positive; In Women: 3 or > Positive: 0 Screen Result (Pos requires Nsg. Audit-10AR): Negative In the last yr the pt used illegal drug/Rx for NonMed reason: No Score: Yes response is considered Positive: 0 Screen Result (Positive result requires Nsg. DAST-10): Negative *Physical Exam - Vital Signs Last Vital Signs Temp Pulse Resp BP Pulse Ox 98.7 F 78 19 115/78 99 01/14/20 17:28 01/14/20 17:28 01/14/20 17:28 01/14/20 17:28 01/14/20 17:28 ED Treatment Course - Medications Given in the ED: ED Medications Discontinued Medications Generic Name Dose Route Start Last Admin Trade Name Freq PRN Reason Stop Dose Admin Ibuprofen 600 mg 01/14/20 18:27 01/14/20 18:29 Motrin - PO 01/14/20 18:28 600 mg ONCE ONE Administration Medical Decision Making - Medical Decision Making 01/14/20 18:35 34-year-old female history of abscess to left breast 3 years ago at that time reports having a normal mammogram. Also had piercing of bilateral nipples 3 years ago, the left piercing was accidentally struck by her 1-year-old potentially causing the abscess. Presents to the ED complaining of swelling and redness to left breast since early November which resolved after applying cool compresses, needle aspiration and 10-day course of antibiotics given by urgent care. Given pandemic patient did not want to come to the hospital. However pain and swelling returned 3 weeks ago and this afternoon while taking a shower she felt drainage from her left breast. Denies fever, chills or trauma. Patient is not breast-feeding. Wound culture obtained P.o. ibuprofen 600 mg 1 dose given Prescription for cephalexin sent to pharmacy Advised patient to follow-up with PMD and soft hat binder Discharge - Discharge Information Problems reviewed: Yes Clinical Impression/Diagnosis: Breast abscess Condition: Stable Disposition: HOME - Admission No - Additional Discharge Information Prescriptions: Cephalexin [Keflex] 500 mg PO QID 10 Days #40 capsule - Follow up/Referral Referrals: Doreen Elliott MD [Primary Care Provider] - - Patient Discharge Instructions Additional Instructions: Follow-up with your primary care doctor and soft hat binder within 1 month Take cephalexin 500 mg 1 tablet every 6 hours for 10 days Take ibuprofen 600 mg as needed for pain every 6 hours Return to ED if you develop worsening pain, redness, fever, chills or any concerning symptoms - Post Discharge Activity
== END 2020-01-14 18:39 | disposition home or self-care (01) ==
LOC: JERFT 17:24
DX: N61.1 Abscess of the breast and nipple (principal)
CPT/HCPCS: 87070; 87186; 87205; 99283-25

== ENCOUNTER 2020-05-12 04:53 | Day surgery (SDC) | payer OTHER ==
[2020-05-11 16:22] VITALS: BMI 30.3
[2020-05-12] MEDS ORDERED: LIDOCAINE HCL 1%, 10 MG/ML (20ML VIAL) ONE (09:23)
[2020-05-12] MEDS ORDERED: MIDAZOLAM HCL 2 MG/2 ML SINGLE DOSE VIAL ONE (09:34)
[2020-05-12] MEDS ORDERED: ceFAZolin SODIUM 1 GM VIAL IVPB ONE (09:37)
[2020-05-12] MEDS ORDERED: PROPOFOL 20 ML ONE ×2 (09:40)
[2020-05-12] MEDS ORDERED: LIDOCAINE HCL 1%, 10 MG/ML (20ML VIAL) INF ONE (09:45)
[2020-05-12] MEDS ORDERED: BACITRACIN 15 GM TUBE TOPICAL OINTMENT ONE (09:54)
[2020-05-12] MEDS ORDERED: BACITRACIN 15 GM TUBE TOPICAL OINTMENT TP ONE (10:00)
[2020-05-12] MEDS ORDERED: ONDANSETRON 4 MG/2 ML VIAL IVPUSH PRN (10:35)
[2020-05-12] MEDS ORDERED: LACTATED RINGERS SOLUTION 1,000 ML IV SCH (10:45)
[2020-05-12] MEDS ORDERED: HYDROmorphone HCl 2 MG/ML VIAL ONE (11:20)
[2020-05-12] MEDS ORDERED: HYDROmorphone HCl 2 MG/ML VIAL IVPUSH ONE ×3 (11:25→11:28)
[2020-05-12] MEDS ORDERED: oxyCODONE HCL 5 MG TABLET PO PRN ×2 (11:27)
[2020-05-12] MEDS ORDERED: ACETAMINOPHEN 1000 MG/100 ML VIAL (NON FORMULARY) IVPB ONE ×2 (11:28→11:50)
[2020-05-12] MEDS ORDERED: KETOROLAC TROMETHAMINE 30 MG/1 ML VIAL ONE (11:45)
[2020-05-12] MEDS ORDERED: KETOROLAC TROMETHAMINE 30 MG/1 ML VIAL IVPUSH ONE (11:49)
[2020-05-12] MEDS ORDERED: KETOROLAC TROMETHAMINE 30 MG/1 ML VIAL IVPB ONE (11:50)
[2020-05-12 12:49] VITALS: PULSE 60
[2020-05-12 13:27] VITALS: BP 125/79; TEMP 97.2
== END 2020-05-12 13:58 | disposition home or self-care (01) ==
LOC: JASU-SURG 04:53
PROVIDERS: ATTEND Surgery
PROC: 0HBU0ZX Excision of Left Breast, Open Approach, Diagnostic (ICD-10-PCS; principal; 2020-05-12 09:00)
DX: N60.12 Diffuse cystic mastopathy of left breast (principal); N60.82 Other benign mammary dysplasias of left breast; N61.1 Abscess of the breast and nipple; N63.20 Unspecified lump in the left breast, unspecified quadrant
CPT/HCPCS: 81025; 88307-TC; 94760; J0131

== ENCOUNTER 2020-08-01 11:53 | Emergency (ER) | payer OTHER ==
[2020-08-01 12:33] VITALS: BP 141/85; PULSE 98; TEMP 99.8; BMI 30.9
[2020-08-01] MEDS ORDERED: KETOROLAC TROMETHAMINE 10 MG TABLET PO ONE ×2 (13:17→13:23)
[2020-08-01] MEDS ORDERED: IBUPROFEN 400 MG TABLET (FP) PO ONE ×2 (13:54→13:59)
== END 2020-08-01 14:08 | disposition home or self-care (01) ==
LOC: JER 11:53
DX: N61.1 Abscess of the breast and nipple (principal)
CPT/HCPCS: 99283-25

== ENCOUNTER 2020-08-03 14:10 | Emergency (ER) | payer OTHER ==
[2020-08-03 14:27] VITALS: BP 123/76; PULSE 79; TEMP 98; BMI 30.9
== END 2020-08-03 15:18 | disposition home or self-care (01) ==
LOC: JERFT 14:10
DX: S21.002A Unspecified open wound of left breast, initial encounter (principal)
CPT/HCPCS: 99283-25

== ENCOUNTER 2022-03-09 11:26 | Emergency (ER) | payer OTHER ==
[2022-03-09 11:34] VITALS: BP 151/88; PULSE 93; RESP 17; TEMP 98.3; BMI 30.2
== END 2022-03-09 13:00 | disposition home or self-care (01) ==
LOC: JERFT 11:26
DX: N64.4 Mastodynia (principal)
CPT/HCPCS: 99283-25

== ENCOUNTER 2022-09-23 11:37 | Emergency (ER) | payer OTHER ==
[2022-09-23 12:03] VITALS: BP 149/90; PULSE 84; RESP 18; TEMP 97.9; BMI 31.8
[2022-09-23] MEDS ORDERED: ACETAMINOPHEN 1000 MG/100 ML BAG IVPB ONE (12:43)
[2022-09-23] MEDS ORDERED: SODIUM CHLORIDE 1,000 ML IV STA (12:43)
[2022-09-23] MEDS ORDERED: METOCLOPRAMIDE HCL INJECTION 10 MG/2 ML VIAL IVPUSH ONE (12:43)
[2022-09-23] MEDS ORDERED: ACETAMINOPHEN INJECTION 100 ML IVPB ONE (12:51)
[2022-09-23] MEDS ORDERED: METOCLOPRAMIDE HCL INJECTION 10 MG/2 ML VIAL ONE (12:51)
[2022-09-23 13:20] LABS: BASO % 0.9 % (0-2.0); EOS % 4.1 % (0-4.5); HEMATOCRIT 43.4 % (32.4-45.2); HEMOGLOBIN 14.6 GM/dL (10.7-15.3); LYMPH % 36.6 % (8-40); MCH 27.8 pg (25.7-33.7); MCHC 33.6 g/dl (32.0-36.0); MEAN CELL VOLUME 82.6 fl (80-96); MEAN PLT VOLUME 7.9 fl (7.5-11.1); MONO % 4.3 % (3.8-10.2); NEUT % 54.1 % (42.8-82.8); PLATELET COUNT 286 10^3/uL (134-434); RBC 5.26 M/mm3 (3.60-5.2); RDW 13.5 % (11.6-15.6); WHITE BLOOD COUNT 7.9 K/mm3 (4.0-10.0)
[2022-09-23 13:45] LABS: CHLORIDE 109 mmol/L (98-107); SODIUM 138 mmol/L (136-145)
[2022-09-23 13:47] LABS: ANION GAP 4 MMOL/L (8-16); BLOOD UREA NITROGEN 8.8 mg/dL (7-18); CALCIUM 10.3 mg/dL (8.5-10.1); CO2 25 mmol/L (21-32); GLUCOSE,RANDOM 96 mg/dL (74-106)
[2022-09-23 13:48] LABS: ALBUMIN 4.2 g/dl (3.4-5.0)
[2022-09-23 13:51] LABS: CREATININE 0.8 mg/dL (0.55-1.3); SGOT/AST 37 U/L (15-37); SGPT/ALT 106 U/L (13-61)
[2022-09-23 13:52] LABS: BILIRUBIN,TOTAL 0.4 mg/dL (0.2-1); TOT PROT 7.6 g/dl (6.4-8.2)
[2022-09-23 13:53] LABS: ALK PHOS 77 U/L (45-117)
[2022-09-23] MEDS ORDERED: IBUPROFEN 400 MG TABLET (FP) PO ONE ×2 (15:01→15:04)
== END 2022-09-23 15:11 | disposition home or self-care (01) ==
LOC: JER 11:37
PROC: 3E033NZ Introduction of Analgesics, Hypnotics, Sedatives into Peripheral Vein, Percutaneous Approach (ICD-10-PCS; principal; 2022-09-23)
PROC: 3E033GC Introduction of Other Therapeutic Substance into Peripheral Vein, Percutaneous Approach (ICD-10-PCS; 2022-09-23)
PROC: 3E0337Z Introduction of Electrolytic and Water Balance Substance into Peripheral Vein, Percutaneous Approach (ICD-10-PCS; 2022-09-23)
DX: G44.209 Tension-type headache, unspecified, not intractable (principal); Z20.822 Contact with and (suspected) exposure to COVID-19
CPT/HCPCS: 0241U-QW; 36415; 70450-TC; 80053; 84702; 85025; 99284-25

== ENCOUNTER 2024-04-03 12:08 | Emergency (ER) | payer OTHER ==
[2024-04-03 12:16] VITALS: BP 133/92; PULSE 82; RESP 18; TEMP 98.2; BMI 29.8
[2024-04-03] MEDS ORDERED: LIDOCAINE 4% PATCH TP ONE (13:20)
[2024-04-03] MEDS ORDERED: KETOROLAC TROMETHAMINE 30 MG/1 ML VIAL ONE (13:20)
[2024-04-03] MEDS: KETOROLAC TROMETHAMINE 30 MG/1 ML VIAL IM ONE (13:27)
[2024-04-03] MEDS: LIDOCAINE 4% PATCH TP ONE (13:28)
[2024-04-03] MEDS: LIDOCAINE 5% TOPICAL PATCH TP ONE (13:28)
[2024-04-03] MEDS ORDERED: LIDOCAINE PATCH REMOVAL MC ONE (22:00)
[2024-04-03] MEDS ORDERED: LIDOCAINE PATCH REMOVAL MC SCH (22:00)
== END 2024-04-03 13:28 | disposition home or self-care (01) ==
LOC: JERFT 12:08
PROC: 3E0233Z Introduction of Anti-inflammatory into Muscle, Percutaneous Approach (ICD-10-PCS; principal; 2024-04-03)
DX: M54.41 Lumbago with sciatica, right side (principal)
CPT/HCPCS: 99284-25